=== PATIENT | male | born 1995 | race Caucasian/White ===

== ENCOUNTER 2022-11-09 00:25 | Day surgery (SDC) | payer OTHER, SELFPAY ==
[2022-11-06 08:34] VITALS: BMI 26.9
--- NOTE | 2022-11-06 08:42 | PC.NURSE ---
Report to the Outpatient Waiting Room, entrance under the green pavilion located off [facility], at time 0600 on date 11/09/22. Planned Procedure Time: 0730. Time changes happen often and if your time is changed the preop area will call you the afternoon before. - You and your visitor will be asked to self-screen and do not enter if you have any COVID symptoms. - Only one visitor is requested with a max of two and NO children visitors are allowed at this time. - The patient visitor may be requested to leave or wait in car when not with patient due to distancing restrictions. - A mask is optional within the hospital. Patients may have clear liquids (water, carbonated beverages, clear teas, apple juice) until 3 hours prior to surgery with a maximum of 20 ounces. - No food from midnight until time of surgery Take the following medications with a SIP of water the morning of surgery: ANTIBIOTIC (IF STILL TAKING), INHALER IF NEEDED Medications to discontinue per physician: N/A Date to take last dose: N/A Please no make-up, nail portuguese, hairspray, perfume, deodorant, or body powder the day of surgery. No jewelry (including any body piercings) or valuables the day of surgery, leave them at home. Please take a shower or bath the night before, or the morning of, surgery with an antibacterial soap. Wear comfortable, loose fitting clothing. - Jewelry must be removed prior to entering the operating room. Rings and piercings that are not removed may be cut off. - The hospital will not accept responsibility for valuables. - Please leave all valuables, including medications, at home the day of surgery. If you are going home after surgery, a licensed commercial relief driver must drive you home. - NO public transportation without another adult if you receive anesthesia. - We recommend that an adult stay with you for 24 hours following discharge. - We also recommend that you do not drive, make important decision, drink alcoholic beverages, or take any drugs that were not prescribed by your health care provider for at least 24 hours after your discharge time. Follow any additional instructions given to you from your surgeon. If you or anyone in your household have experienced Covid symptoms in the past week, please notify your surgeon or the nurse liaison at the phone number below for possible testing. Telephone instructions given to LYNDSEY SAWYER and asked if any additional questions and then verbalized understanding. Patient advised to call surgeon office or pre surgery nurse liaison [phone] if any additional questions.
[2022-11-09] VITALS (8 sets, daily range): BP systolic 129–143; BP diastolic 77–96; PULSE 63–101; RESP 10–16; TEMP 36.4–37.1; O2SAT 96–100
[2022-11-09] MEDS: ACETAMINOPHEN 500 MG TABLET 1000 MG PO (06:10)
[2022-11-09] MEDS: LACTATED RINGERS 1,000 ML 30 ML IV CONT ×2 (06:50→09:25)
--- NOTE | 2022-11-09 07:14 | PM.IMHP ---
H&P: HPI History of Present Illness Date/Time: 11/09/22 07:14 Chief Complaint: chronic sinusitis Review of Systems Review of Systems: All systems reviewed & are unremarkable except as noted in HPI and below [facility] Social History Social History Smoking status: Former smoker Tobacco type: cigarettes Additional smoking assessment comments: FORMER [employer] SMO[employer] Alcohol intake: current Drinks per week: 4 Substance use: current Substance use type: marijuana Living arrangements: alone Spiritual care concerns: No Meds Home Medications and Allergies Home Medications Medication Instructions Recorded Confirmed Type albuterol sulfate 90 mcg/actuation 1 inh inhalation Q6H PRN 11/06/22 11/09/22 History aerosol inhaler Bronchospasm dextroamphetamine-amphetamine ER 30 mg PO DAILY 11/06/22 11/09/22 History 30 mg 24hr capsule,extend release (Adderall XR) Allergies Allergy/AdvReac Type Severity Reaction Status Date / Time No Known Allergies Allergy Unknown Verified 11/09/22 06:08 Vital Signs Vital Signs - 24 hr 11/09/22 06:52 Temperature 37.1 C Pulse Rate 72 Respiratory Rate 16 Blood Pressure 131/83 Pulse Oximetry 96 Oxygen Delivery Room Air Exam Narrative: deviated nasal septum, chronic pansinusitis, rest of exam wnl Assessment and Plan Assessment and plan (1) Chronic pansinusitis: Code(s): J32.4 - Chronic pansinusitis Status: Acute Plan Douglas is here for septoplasty, turbinoplasty, bilateral maxillary antrostomy, total ethmoidectomy, sphenoidotomy. r/b/a reviewed, pt understands and agrees to proceed. Refer to outpt H&P for full details.
[2022-11-09] MEDS: OXYMETAZOLINE HCL 0.05% NAS 15 ML BTL (*BKC) 1 SPRAY NASAL (07:16)
--- NOTE | 2022-11-09 07:17 | WPDHPUPDATE1 ---
History and Physical Update Update Date/Time: 11/09/22 07:17 History and Physical has been reviewed, including an updated exam of the patient. There are NO changes in the patient's condition. Risks, benefits, and alternatives have been discussed and questions answered. Patient agrees to proceed with procedure.
--- NOTE | 2022-11-09 07:17 | WPDANESEPPF ---
Anes - Initial Pre Proc Eval Procedure: Operation Date: 11/09/22 07:30 Proposed Procedures p Image Guided Bilateral Ethmoidectomy, Bilateral Sphenoidotomy, Bilateral Maxillary Antrostomy, Bilateral Turbinate Reduction, - Samir John MD s Endoscopic Septoplasty - Samir John MD Date/Time: 11/09/22 07:17 Surgeon: Samir John MD Pre Op Diagnosis: deviated septum,chronic sinusitis, turbinated ayo Patient Data Age: 27 Gender: M Height: 1.83 m Weight: 96.3 kg Last Vital Signs Temp 98.7 F 11/09/22 06:52 Pulse 72 11/09/22 06:52 Resp 16 11/09/22 06:52 BP 131/83 11/09/22 06:52 Pulse Ox 96 11/09/22 06:52 O2 Del Method Room Air 11/09/22 06:52 Allergies Allergy/AdvReac Type Severity Reaction Status Date / Time No Known Allergies Allergy Unknown Verified 11/09/22 06:08 Home Medications Medication Instructions Recorded Confirmed Type albuterol sulfate 90 mcg/actuation 1 inh inhalation Q6H PRN 11/06/22 11/09/22 History aerosol inhaler Bronchospasm dextroamphetamine-amphetamine ER 30 mg PO DAILY 11/06/22 11/09/22 History 30 mg 24hr capsule,extend release (Adderall XR) Patient hx anesthesia problems: none Family hx anesthesia problems: none Results Review: All pre-operative results and documents have been reviewed as part of the pre-operative evaluation. [facility] Social History Social History Smoking status: Former smoker Tobacco type: cigarettes Additional smoking assessment comments: FORMER [employer] S[employer] Alcohol intake: current Drinks per week: 4 Substance use: current Substance use type: marijuana Living arrangements: alone Spiritual care concerns: No Anes - Eval Final PreProcedure Day of Procedure 11/09/22 07:17 Patient weight: normal Heart: regular rate and rhythm Lungs: clear to auscultation Airway: Mallampati scale class II Neurological: alert and oriented Last oral intake: >/= 8 hours ASA classification: II Emergent: no Anesthetic plan: proceed Anesthesia type and monitoring: general ETT and standard monitoring Results Review: All pre-operative results and documents have been reviewed as part of the pre-operative evaluation. Informed Consent: The patient's anesthetic plan and its attendant risks and benefits were discussed with the patient/family/POA. Questions were solicited and answers provided to the satisfaction of the patient/family/POA.
[2022-11-09] MEDS: ceFAZolin 2 GM/D5W 50 ML 2 GM/50 ML BAG IVPB (07:31)
[2022-11-09] MEDS: MUPIROCIN 2% OINT 22 GM TUBE 1 APPLIC EACH NARE (08:38)
--- NOTE | 2022-11-09 08:56 | W.PM.PROC2 ---
Procedure Note - Detailed Date of Procedure 11/09/22 Pre-op Diagnosis deviated septum,chronic sinusitis, turbinated ayo Post-op Diagnosis Same Procedure Performed Endoscopic bilateral maxillary antrostomy,total ethmoidectomy, sphenoidotomy, septoplasty, turbinoplasty Surgeon Samir John MD Anesthesia General Indications Chronic sinusitis, deviated septum Findings Right septal deviation. Right infected maxillary sinus. Nasopore bilaterally,no meyers splints Description of Procedure On the date of procedure the patient was met in the preoperative area and risk and benefits of the procedure reviewed with the patient as documented in the H&P and they elected to proceed with surgery. Patient was brought back to the operating room by the anesthesia team and underwent general endotracheal anesthesia. Once an adequate plane of anesthesia was obtained a timeout was performed to assure the patient identification the patient here to be performed were correct. They were.The patient was then prepped and draped in the normal fashion for endoscopic sinus surgery. The diffusion image guidance system was calibrated and used for the entire case. Afrin-soaked pledgets were placed in the nasal cavities bilaterally. The entire case was performed under endoscopic visualization. Nasal endoscopy was performed at the beginning of the case. 1% lidocaine with 1:100,000 epinephrine was then injected into the root of the middle turbinate and lateral nasal wall. Attention was first directed towards the right side. The right side was narrowed due to septal deviation.? Thus, septoplasty was required.? A right modified carline incision was made in the right mid septum and a mucoperichondrial flap was elevated in the usual fashion. The flap was elevated under endoscopic visualization and the remainder of the case was performed with endoscopic assistance. Using a rosa m elevator and blakesy forceps, a septal spur was resected and carefully removed from the septum. The mucosal flap was laid back down and showed significant improvement in breathing. Next, on the right side the middle turbinate was medialized and the osteomeatal complex was identified with a anuja probe. Using a 90 degree backbiter, the uncinate process was reflected anteriorly and removed using a combination of sharp and powered dissection. The maxillary antrostomy was then created and widened by identifying the natural ostia and opening the sinus with straight alec-cut forceps, backbiter, and microdebrider. There was evidence of chronic mucoid right maxillary sinus disease, removed with suction. Continuing with the microdebrider, the anterior ethmoid bulla was opened. Careful dissection was carried out posteriorly, through the basal lamella and posterior ethmoid cells until the sphenoid rostrum was identified. A Rebecca suction bluntly identified the sphenoid os and the opening was widened with microdebrider and mushroom punch to 5mm. Using an image guided curved suction as well as J-curette, the posterior most ethmoid cell was identified and the ethmoids were bluntly fractured and dissected from posterior to anterior along the base of the skull. The remaining bone fragments were removed with appropriate curved instruments and microdebrider.? Next, the left maxillary antrostomy, ethmoidectomy and sphenoidotomy were carried out in identical fashion without gross infection noted. No evidence of CSF leakt hroughout the case. Naspore was placed bilaterally in the ethmoid cavities. Lastly, the bilateral inferior turbinates were reduced submucosally using 2mm microdebrider and then outfractured with a sayer elevator. This significantly opened the airway. ? At this point, the procedure was concluded. Care the patient was transferred back to the anesthesia team and the patient was awoke in the operating room and transferred back to the PACU in stable condition. Samir John M.D. Estimated Blood Loss -25.0 Drains No Packing Yes
[2022-11-09] MEDS: fentaNYL CITRATE INJ (*CRX) 100 MCG/2 ML VIAL 25 MCG IV PUSH ×4 (09:12→09:40)
[2022-11-09] MEDS: oxyCODONE HCL (*CRX) 5 MG TAB IR PO (10:14)
--- NOTE | 2022-11-09 10:53 | SUR.PHASEII ---
Vital signs stable; patient is getting dressed.
== END 2022-11-09 10:56 | disposition home or self-care (01) ==
PROVIDERS: PCP Nurse Practitioner Adult Health; Visit Provider Otolaryngology
PROC: (CPT 31256; principal; 2022-11-09 07:30)
PROC: (CPT 30520; 2022-11-09 07:30)
DX: J32.4 Chronic pansinusitis (principal); J34.2 Deviated nasal septum; J34.3 Hypertrophy of nasal turbinates; Z79.51 Long term (current) use of inhaled steroids; Z87.891 Personal history of nicotine dependence; F12.90 Cannabis use, unspecified, uncomplicated
CPT/HCPCS: 31256; 31257; 61782; 30520; 30140; A9270; J0690; J1100; J2250; J2405; J2704; J3010; J7120

== ENCOUNTER 2023-01-16 11:58 | Emergency (ER) | payer OTHER, SELFPAY ==
[2023-01-16] VITALS (17 sets, daily range): BP systolic 118–147; BP diastolic 66–90; PULSE 100–126; RESP 15–34; TEMP 36.8; O2SAT 90–100
--- NOTE | ~2023-01-16 | XR_ITS ---
EXAMINATION: XR chest 1V portable INDICATION: Shortness of breath TECHNIQUE: Portable AP chest at 1245 hours COMPARISON: None available FINDINGS: The lungs are free of acute opacities. No pleural effusion or pneumothorax. The cardiomedia stinal silhouette is normal. The visualized bones and soft tissues are unremarkable. IMPRESSION: 1. No acute cardiopulmonary abnormality. Reviewed, dictated and finalized at location A.
--- NOTE | 2023-01-16 12:07 | ED.ASTHMA ---
HPI - Asthma General Chief Complaint: Asthma Stated Complaint: asthma Time Seen by Provider: 01/16/23 12:00 History of Present Illness HPI Narrative: 27-year-old male history of asthma, GERD and ADHD presents to the emergency room from urgent care for evaluation of shortness of breath and asthma exacerbation. Patient states since last night he has been experiencing difficulty breathing associated with wheezing. Has taken his rescue inhaler 5 times with no relief of symptoms. States he does not smoke however he does not use marijuana daily. Related Data Home Medications Medication Instructions Recorded Confirmed albuterol sulfate 90 mcg/actuation 1 inh inhalation Q6H PRN 11/06/22 11/09/22 aerosol inhaler Bronchospasm dextroamphetamine-amphetamine ER 30 mg PO DAILY 11/06/22 11/09/22 30 mg 24hr capsule,extend release (Adderall XR) Allergies Allergy/AdvReac Type Severity Reaction Status Date / Time No Known Allergies Allergy Unknown Verified 01/16/23 12:04 Review of Systems Review of Systems: CONSTITUTIONAL: Denies fever, chills, or sweats. EYES: Denies visual changes, redness, or discharge. ENT: Denies rhinorrhea, congestion, sore throat, or otalgia. CARDIOVASCULAR: Denies chest pain, palpitations, or edema. RESPIRATORY: Reports dyspnea, wheezing GASTROINTESTINAL: Denies abdominal pain, nausea, vomiting, or diarrhea. GENITOURINARY: Denies dysuria or hematuria. SKIN: Denies rash or itching. MUSCULOSKELETAL: Denies back pain, joint pain, or myalgia. NEUROLOGIC: Denies headache, numbness, dizziness, or weakness. PSYCHIATRIC: Denies anxiety or depression. [facility] Social History Social History Smoking status: Former smoker Tobacco type: cigarettes Additional smoking assessment comments: FORMER SOME DAY SMOKER Alcohol intake: current Drinks per week: 4 Substance use: current Substance use type: marijuana Living arrangements: alone Spiritual care concerns: No Exam Narrative: GENERAL: Well-appearing, well-nourished, no physical limitations, and in mild respiratory distress HEAD: Normocephalic, atraumatic. EYES: Conjunctivae normal, PERRLA and EOMI. CHEST: Wheezing throughout, mild respiratory distress HEART: Regular rate and rhythm. No murmur heard. Normal peripheral pulses. ABDOMEN: Soft, nontender, nondistended, normal active bowel sounds. EXTREMITIES: Normal range of motion. No edema. No clubbing or cyanosis SKIN: Warm, dry, no rash. No noted wounds NEURO: No focal deficits. Alert and oriented x3. MAEW. CN's II-XI intact bilaterally, normal gait PSYCH: Cooperative. Normal mood and affect. Course Vital Signs Vital signs: Vital Signs Temperature 36.8 C 01/16/23 12:05 Pulse Rate 109 H 01/16/23 12:05 Respiratory Rate 22 H 01/16/23 12:05 Blood Pressure 123/66 01/16/23 12:05 Pulse Oximetry 96 01/16/23 12:05 Temperature 36.8 C 01/16/23 12:05 Pulse Rate 113 H 01/16/23 14:05 Respiratory Rate 15 01/16/23 14:05 Blood Pressure 147/84 H 01/16/23 14:05 Pulse Oximetry 96 01/16/23 14:05 Oxygen Delivery Room Air 01/16/23 12:10 MDM - Asthma MDM Narrative Medical decision making narrative: 27-year-old male presented emergency room with shortness of breath and wheezing. Stated taking his rescue inhaler multiple times an hour since last night. Patient states that he does smoke marijuana daily, and is exposed to multiple environmental irritants caused him to use his inhaler. Patient was given 3 nebulizer treatments, 2 g of magnesium IV, and 125 mg of Solu-Medrol. Patient still exhibited expiratory wheezing, however said that he was able to breathe easier. Patient road tested with a pulse ox of 92 and no complaints of shortness of breath. We will send patient home with close follow-up with primary care provider. Patient given explicit instructions on when to return to the emergency room. Patient stated underst
[2023-01-16] MEDS: IPRATROPIUM BR 0.02% INH SOLN 0.5 MG/2.5 ML VIAL INHALATION ×2 (12:16→13:56)
[2023-01-16] MEDS: ALBUTEROL SULFATE NEB 2.5 MG/3 ML INH 15 MG INHALATION (12:18)
[2023-01-16] MEDS: ONDANSETRON INJ 4 MG/2 ML VIAL IV PUSH (12:18)
[2023-01-16] MEDS: methylPREDNISolone SOD SUCC 125 MG VIAL IV PUSH (12:21)
[2023-01-16] MEDS: ALBUTEROL SULFATE NEB 2.5 MG/3 ML INH 5 MG INHALATION (13:55)
[2023-01-16] MEDS: MAGNESIUM SULF 2 GM/WATER 50ML 2 GM/50 ML BAG IVPB (14:05)
== END 2023-01-16 16:37 | disposition home or self-care (01) ==
PROVIDERS: Emergency Provider Nurse Practitioner Family; PCP Family Medicine
DX: J45.901 Unspecified asthma with (acute) exacerbation (principal); F12.90 Cannabis use, unspecified, uncomplicated; Z87.891 Personal history of nicotine dependence
CPT/HCPCS: 71045; 94640; 96365; 96375; 99284; J2405; J2930; J3475